=== PATIENT | female | born 1940 | race African-American/Black ===

== ENCOUNTER 2020-07-02 11:54 | Observation (INO) ==
[2020-07-02] MEDS ORDERED: Aspirin 81 MG TAB.CHEW PO ONE (12:05)
[2020-07-02 12:29] LABS: Basophils # 0.1 K/mcL (0.0-0.2); Basophils % 0.7 %; Eosinophils # 0.1 K/mcL (0.0-0.6); Hematocrit 36.4 % (35.3-44.9); Hemoglobin 11.7 g/dL (11.5-15.4); Immature Granulocytes % 0.1 % (0-4); Lymphocytes % 27.9 %; Mean Corpuscular HGB Conc 32.1 g/dL (31.6-35.5); Mean Corpuscular Hemoglobin 30.4 pg (28.0-33.3); Mean Corpuscular Volume 94.5 fL (83.0-100.0); Monocytes % 13.3 %; Neutrophils # 4.1 K/mcL (1.6-8.9); Platelet Count 188 K/mcL (140-400); Red Blood Count 3.85 M/mcL (3.82-4.97); Red Cell Distribution Width 13.5 % (11.5-14.5); White Blood Count 7.1 K/mcL (4.3-11.1)
[2020-07-02 12:40] LABS: INR 1.1
[2020-07-02 12:49] LABS: BUN/Creatinine Ratio 20 (6-26); Blood Urea Nitrogen 18 mg/dL (8-23); Calcium 9.4 mg/dL (8.6-10.3); Carbon Dioxide 24 mEq/L (23-29); Chloride 108 mEq/L (98-107); Glucose 155 mg/dL (70-105); Osmolality,Calculated 293 (280-300); Potassium 3.6 mEq/L (3.5-5.1); Sodium 139 mEq/L (136-145); Troponin I < 0.03 ng/mL (< 0.04); eGFR For African Americans > 60 (> 60); eGFR For Non-African Americans > 60 (> 60)
[2020-07-02] MEDS: Nitroglycerin 0.4 MG TAB.SUBL SL PRN ×2 (13:00→13:17)
[2020-07-02] MEDS ORDERED: carvediloL 6.25 MG TABLET PO ONE (13:37)
[2020-07-02] MEDS ORDERED: Morphine Sulfate 2 MG/ML SYRINGE IVP PRN (14:08)
[2020-07-02] MEDS ORDERED: Dextrose Gel 15 GM/37.5 ML TUBE PO PRN ×2 (14:17)
[2020-07-02] MEDS ORDERED: D5% in Water 1,000 ML IVC PRN (14:17)
[2020-07-02] MEDS ORDERED: *HR* Dextrose 50 % in Water (Vial) 50 ML VIAL IVP PRN (14:17)
[2020-07-02] MEDS: Insulin LISPRO 300 UNITS/3 ML VIAL SQ SCH ×2 (16:13→20:22)
[2020-07-02] MEDS: carvediloL 6.25 MG TABLET PO SCH (16:48)
[2020-07-02] MEDS: *HR* Heparin 5,000 UNIT/ML VIAL SQ SCH (16:58)
[2020-07-03 01:51] LABS: Basophils # 0.1 K/mcL (0.0-0.2); Basophils % 0.9 %; Eosinophils # 0.1 K/mcL (0.0-0.6); Eosinophils % 1.7 %; Hemoglobin 12.1 g/dL (11.5-15.4); Immature Granulocytes % 0.2 % (0-4); Lymphocytes # 1.8 K/mcL (0.6-4.6); Lymphocytes % 27.8 %; Mean Corpuscular HGB Conc 31.8 g/dL (31.6-35.5); Mean Corpuscular Hemoglobin 29.9 pg (28.0-33.3); Mean Corpuscular Volume 93.8 fL (83.0-100.0); Mean Platelet Volume 9.5 fL (9.4-12.4); Monocytes # 0.9 K/mcL (0.0-1.3); Monocytes % 14.4 %; Neutrophils # 3.6 K/mcL (1.6-8.9); Platelet Count 194 K/mcL (140-400); Red Blood Count 4.05 M/mcL (3.82-4.97); Red Cell Distribution Width 13.5 % (11.5-14.5); White Blood Count 6.5 K/mcL (4.3-11.1)
[2020-07-03 02:01] LABS: INR 1.1; Prothrombin Time 12.6 Seconds (9.4-12.1)
[2020-07-03 02:09] LABS: Alanine Aminotransferase 19 Units/L (7-52); Albumin 3.9 g/dL (3.5-5.7); Albumin/Globulin Ratio 1.2 (1.1-2.2); Alkaline Phosphatase 86 Units/L (34-104); Aspartate Amino Transferase 18 Units/L (13-39); BUN/Creatinine Ratio 19 (6-26); Bilirubin,Total 0.5 mg/dL (0.3-1.0); Blood Urea Nitrogen 14 mg/dL (8-23); Calcium 9.4 mg/dL (8.6-10.3); Carbon Dioxide 24 mEq/L (23-29); Chloride 107 mEq/L (98-107); Globulin 3.2 g/dL (2.4-3.5); Glucose 154 mg/dL (70-105); Magnesium 1.9 mg/dL (1.6-2.6); Osmolality,Calculated 292 (280-300); Potassium 3.8 mEq/L (3.5-5.1); Sodium 139 mEq/L (136-145); Total Protein 7.1 g/dL (6.4-8.9); eGFR For African Americans > 60 (> 60); eGFR For Non-African Americans > 60 (> 60)
[2020-07-03] MEDS ORDERED: Ondansetron 4 MG/2 ML VIAL IVP PRN (02:33)
[2020-07-03] MEDS: *HR* Heparin 5,000 UNIT/ML VIAL SQ SCH ×2 (03:26→16:18)
[2020-07-03] MEDS ORDERED: Regadenoson 0.4 MG/5 ML SYRINGE IVP ONE (07:09)
[2020-07-03] MEDS: Insulin LISPRO 300 UNITS/3 ML VIAL SQ SCH ×4 (09:16→19:30)
[2020-07-03] MEDS: Aspirin 81 MG TAB.CHEW PO SCH (09:17)
[2020-07-03] MEDS: carvediloL 6.25 MG TABLET PO SCH ×2 (09:17→16:18)
[2020-07-03] MEDS: Isosorbide MONOnitrate (24 HR) 30 MG TAB.ER.24H PO SCH (16:19)
[2020-07-03] MEDS: amLODIPine 5 MG TABLET PO SCH (16:19)
[2020-07-04] MEDS: *HR* Heparin 5,000 UNIT/ML VIAL SQ SCH ×2 (04:58→17:43)
[2020-07-04] MEDS: Insulin LISPRO 300 UNITS/3 ML VIAL SQ SCH ×4 (07:46→21:00)
[2020-07-04] MEDS: Aspirin 81 MG TAB.CHEW PO SCH (08:30)
[2020-07-04] MEDS: Isosorbide MONOnitrate (24 HR) 30 MG TAB.ER.24H PO SCH (08:30)
[2020-07-04] MEDS: amLODIPine 5 MG TABLET PO SCH (08:30)
[2020-07-04] MEDS: carvediloL 6.25 MG TABLET PO SCH ×2 (08:30→17:43)
[2020-07-04] MEDS: Cholecalciferol (D-3) 1,000 UNIT (25MCG) TABLET PO SCH (08:31)
[2020-07-04] MEDS ORDERED: Acetaminophen 325 MG TABLET PO PRN (11:19)
[2020-07-05] MEDS: *HR* Heparin 5,000 UNIT/ML VIAL SQ SCH ×2 (04:23→16:35)
[2020-07-05] MEDS: Insulin LISPRO 300 UNITS/3 ML VIAL SQ SCH ×4 (08:01→20:08)
[2020-07-05] MEDS: Cholecalciferol (D-3) 1,000 UNIT (25MCG) TABLET PO SCH (09:10)
[2020-07-05] MEDS: carvediloL 6.25 MG TABLET PO SCH ×2 (09:10→16:35)
[2020-07-05] MEDS: Aspirin 81 MG TAB.CHEW PO SCH (09:10)
[2020-07-05] MEDS: Isosorbide MONOnitrate (24 HR) 30 MG TAB.ER.24H PO SCH (09:10)
[2020-07-05] MEDS: amLODIPine 5 MG TABLET PO SCH (09:10)
[2020-07-06 02:20] LABS: Basophils # 0.1 K/mcL (0.0-0.2); Basophils % 0.8 %; Eosinophils # 0.2 K/mcL (0.0-0.6); Eosinophils % 3.7 %; Hematocrit 32.9 % (35.3-44.9); Hemoglobin 10.6 g/dL (11.5-15.4); Immature Granulocytes % 0.2 % (0-4); Lymphocytes # 2.2 K/mcL (0.6-4.6); Lymphocytes % 33.1 %; Mean Corpuscular HGB Conc 32.2 g/dL (31.6-35.5); Mean Corpuscular Hemoglobin 30.7 pg (28.0-33.3); Mean Corpuscular Volume 95.4 fL (83.0-100.0); Mean Platelet Volume 9.1 fL (9.4-12.4); Monocytes # 0.9 K/mcL (0.0-1.3); Monocytes % 13.8 %; Neutrophils # 3.2 K/mcL (1.6-8.9); Platelet Count 180 K/mcL (140-400); Red Blood Count 3.45 M/mcL (3.82-4.97); Red Cell Distribution Width 13.4 % (11.5-14.5); Segmented Neutrophils % 48.4 %; White Blood Count 6.5 K/mcL (4.3-11.1)
[2020-07-06 02:42] LABS: BUN/Creatinine Ratio 29 (6-26); Blood Urea Nitrogen 25 mg/dL (8-23); Calcium 8.8 mg/dL (8.6-10.3); Carbon Dioxide 25 mEq/L (23-29); Chloride 106 mEq/L (98-107); Glucose 158 mg/dL (70-105); Osmolality,Calculated 294 (280-300); Potassium 4.3 mEq/L (3.5-5.1); Sodium 138 mEq/L (136-145); Uric Acid 3.6 mg/dL (2.3-7.6); eGFR For African Americans > 60 (> 60); eGFR For Non-African Americans > 60 (> 60)
[2020-07-06] MEDS: *HR* Heparin 5,000 UNIT/ML VIAL SQ SCH ×2 (05:11→16:35)
[2020-07-06] MEDS: Insulin LISPRO 300 UNITS/3 ML VIAL SQ SCH ×3 (08:37→16:36)
[2020-07-06] MEDS: amLODIPine 5 MG TABLET PO SCH (08:38)
[2020-07-06] MEDS: Cholecalciferol (D-3) 1,000 UNIT (25MCG) TABLET PO SCH (08:38)
[2020-07-06] MEDS: Isosorbide MONOnitrate (24 HR) 30 MG TAB.ER.24H PO SCH (08:38)
[2020-07-06] MEDS: Aspirin 81 MG TAB.CHEW PO SCH (08:38)
[2020-07-06] MEDS: carvediloL 6.25 MG TABLET PO SCH ×2 (08:38→16:39)
[2020-07-06 08:45] LABS: Basophils # 0.1 K/mcL (0.0-0.2); Basophils % 0.7 %; Eosinophils # 0.2 K/mcL (0.0-0.6); Hematocrit 36.7 % (35.3-44.9); Hemoglobin 11.6 g/dL (11.5-15.4); Immature Granulocytes % 0.1 % (0-4); Lymphocytes # 1.3 K/mcL (0.6-4.6); Lymphocytes % 18.9 %; Mean Corpuscular HGB Conc 31.6 g/dL (31.6-35.5); Mean Corpuscular Hemoglobin 30.5 pg (28.0-33.3); Mean Corpuscular Volume 96.6 fL (83.0-100.0); Mean Platelet Volume 9.3 fL (9.4-12.4); Monocytes # 0.9 K/mcL (0.0-1.3); Monocytes % 12.9 %; Neutrophils # 4.3 K/mcL (1.6-8.9); Platelet Count 208 K/mcL (140-400); Red Cell Distribution Width 13.4 % (11.5-14.5); Segmented Neutrophils % 64.4 %; White Blood Count 6.7 K/mcL (4.3-11.1)
[2020-07-06] MEDS ORDERED: 0.9 % Sodium Chloride 2,000 ML ONE (14:35)
[2020-07-06] MEDS ORDERED: *HR* Heparin 10,000 UNIT/10 ML VIAL ONE (14:35)
[2020-07-06] MEDS ORDERED: Heparin 1,000 UNITS/500 mL 500 ML ONE (14:35)
[2020-07-06] MEDS ORDERED: Nitroglycerin 1,000 MCG/10 ML VIAL IV ONE (14:36)
[2020-07-06] MEDS ORDERED: ISOVUE-370 200 ML INFUS..BTL ONE (14:36)
[2020-07-06] MEDS ORDERED: *HR* Midazolam HCl 2 MG/2 ML VIAL ONE (15:02)
[2020-07-06] MEDS ORDERED: *HR* FentaNYL (PF) 100 MCG/2 ML VIAL ONE (15:02)
[2020-07-06 19:32] VITALS: BP 124/64
== END 2020-07-06 19:41 | disposition home or self-care (01) ==
LOC: EMEROOARM 11:54 → 3BNU 11:54
PROVIDERS: ADMIT Internal Medicine; ATTEND Internal Medicine